=== PATIENT | male | born 1980 | race Caucasian/White ===

== ENCOUNTER 2020-12-14 17:02 | Emergency (ER) | payer BC ==
[2020-12-14 17:33] LABS: HEMOGLOBIN 17.5 gm/dl (14.0-17.5); RED BLOOD COUNT 5.85 M/UL (4.20-5.50); WHITE BLOOD COUNT 16.1 K/UL (4.5-11.0)
[2020-12-14 17:51] LABS: BUN/CREATININE RATIO 15 (0-10)
[2020-12-14] MEDS ORDERED: VENTOLIN HFA 66.7 GM INH (20:36)
[2020-12-14] MEDS ORDERED: ATROVENT-HFA12.9 GM INH (20:36)
== END 2020-12-14 20:46 | disposition home or self-care (01) ==
LOC: ER1 17:02
PROVIDERS: Physician Assistant Medical
DX: J45.41 Moderate persistent asthma with (acute) exacerbation (principal); R42 Dizziness and giddiness; J45.909 Unspecified asthma, uncomplicated; I10 Essential (primary) hypertension; Z79.82 Long term (current) use of aspirin; Z20.822 Contact with and (suspected) exposure to COVID-19
CPT/HCPCS: 0240U; 36415; 71045; 80053; 83605; 83880; 84484; 85025; 85379; 87040; 93005; 99285

== ENCOUNTER → 2021-04-30 | Outpatient (CLI) | payer BC ==
[~2021-04-30] MED LIST: ATROVENT-HFA12.9 GM INH; VENTOLIN HFA 66.7 GM INH
[2021-05-01 07:11] LABS: VITAMIN D, 25-HYDROXY 74.1 ng/mL (30.0-100.0)
== END ==
LOC: LAB 09:22
DX: J45.51 Severe persistent asthma with (acute) exacerbation (principal); E55.9 Vitamin D deficiency, unspecified
CPT/HCPCS: 36415; 82785; 85048